=== PATIENT | male | born 1960 | race Caucasian/White ===

== ENCOUNTER 2017-02-19 11:54 | Emergency (ER) | payer BC, OTHER ==
[2017-02-19 11:57] VITALS: BMI 23.0
[2017-02-19 11:58] VITALS: BP 163/104; PULSE 96; RESP 20; TEMP 98.3; O2SAT 99
[2017-02-19 13:23] LABS: BASO % 0.4 % (0.0-2.0); HEMOGLOBIN 15.4 g/dL (12.0-18.0); LYMPH # 0.8 K/uL (1.0-4.3); LYMPH % 15.3 % (20.0-40.0); MEAN CELL VOLUME 96.3 fl (80.0-94.0); MEAN CORPUSCULAR HEMOGLOBIN 32.3 pg (27.0-31.0); MEAN CORPUSCULAR HGB CONC 33.6 g/dL (33.0-37.0); MEAN PLATELET VOLUME 8.1 fl (7.2-11.7); MONO # 0.3 K/uL (0.0-0.8); NEUT # 4.3 K/uL (1.8-7.0); NEUT % 79.3 % (50.0-75.0); NRBC % 0.1 % (0.0-0.0); RBC 4.77 Mil/uL (4.40-5.90); RED CELL DISTRIBUTION WIDTH 12.2 % (11.5-14.5); WHITE BLOOD COUNT 5.4 K/uL (4.8-10.8)
[2017-02-19] MEDS: Sodium Chloride 0.9% 1,000 ML IV SCH (13:28)
[2017-02-19 13:31] LABS: BLOOD UREA NITROGEN 12 mg/dl (9-20); CALCIUM 9.4 mg/dL (8.4-10.2); GFR AFRICAN-AMERICAN > 60; GFR NON-AFRICAN AMERICAN > 60
--- NOTE | 2017-02-19 13:36 | ED PDOC ---
HPI: Chest Pain Time Seen by Provider: 02/19/17 12:12 Chief Complaint (Nursing): Chest Pain Chief Complaint (Provider): Chest Pain History Per: Patient History/Exam Limitations: no limitations Onset/Duration Of Symptoms: Days (x 2) Current Symptoms Are (Timing): Still Present Additional Complaint(s): Shashank is a 56 year old male who presents to the emergency department via EMS with sharp substernal, intermittent, non-radiant chest pain associated with shortness of breath since arguing with boss yesterday. Patient states he had an eventful night and woke up this morning with the same chest pain. As per EMS, patient was originally in the police department to get a police report against his boss, but police officers noticed patient not looking well, so they called an ambulance. Patient denies pain. Patient lives by himself. PMD: Provider TBD Past Medical History Reviewed: Historical Data, Nursing Documentation, Vital Signs Vital Signs: Last Vital Signs Temp 98.3 F 02/19/17 11:57 Pulse 96 H 02/19/17 11:57 Resp 20 02/19/17 11:57 BP 163/104 H 02/19/17 11:57 Pulse Ox 99 02/19/17 13:43 - Medical History PMH: No Chronic Diseases - Surgical History Surgical History: No Surg Hx - Family History Family History: States: No Known Family Hx - Social History Current smoker - smoking cessation education provided: No Ex-Smoker (has not smoked in the last 12 months): Yes (not active for 7 years) Alcohol: Other (drinks 2 drinks a week) - Home Medications Home Medications: Ambulatory Orders Medication Instructions Recorded Methocarbamol [Robaxin-750] 2 tab PO QID PRN #16 tablet 09/15/15 Naproxen [Anaprox DS] 1 tab PO Q12 PRN #20 tab 09/15/15 - Allergies Allergies/Adverse Reactions: Allergies Allergy/AdvReac Type Severity Reaction Status Date / Time No Known Allergies Allergy Verified 09/15/15 10:44 Review of Systems ROS Statement: Except As Marked, All Systems Reviewed And Found Negative Cardiovascular: Positive for: Chest Pain (sharp substernal, intermittent, non- radiant chest pain) Physical Exam - Reviewed Nursing Documentation Reviewed: Yes Vital Signs Reviewed: Yes - Physical Exam Appears: Positive for: No Acute Distress Head Exam: Positive for: ATRAUMATIC, NORMOCEPHALIC Skin: Negative for: Rash Neck: Positive for: Supple Cardiovascular/Chest: Positive for: Regular Rate, Rhythm (Normal S1 and S2) Respiratory: Positive for: Normal Breath Sounds. Negative for: Respiratory Distress Neurologic/Psych: Positive for: Alert, Oriented - Laboratory Results Result Diagrams: 02/19/17 13:10 02/19/17 13:10 - ECG O2 Sat by Pulse Oximetry: 99 (RA) Pulse Ox Interpretation: Normal Medical Decision Making Medical Decision Making: Time: 12:47 Impression: Acute substernal Chest Pain Atypical Plan: - EKG - BMP - Troponin I - CBC - Chest X-Ray - Sodium Chloride 0.9% 1,000 ml IV 250 mls/hr - Re-evaluation Time: 12:44 Urine Dip and Leuks are (-). Scribe Attestation: Documented by Chris Bartholomew, acting as a scribe for Marilee Rosario MD Provider Scribe Attestation: All medical record entries made by the Scribe were at my direction and personally dictated by me. I have reviewed the chart and agree that the record accurately reflects my personal performance of the history, physical exam, medical decision making, and the department course for this patient. I have also personally directed, reviewed, and agree with the discharge instructions and disposition. 2.45p - patient is without pain or discomfort since arrival. He still points to the SS area when he does have pain Disposition - Clinical Impression Clinical Impression: Atypical chest pain - Patient ED Disposition Is Patient to be Admitted: No Doctor Will See Patient In The: Office Counseled Patient/Family Regarding: Diagnosis, Need For Followup - Disposition Disposition: Routine/Home Disposition Time: 14:30 Condition: STABLE Instructions: Chest Wall Pain (ED) Forms: [employer] (Singaporean) Print Language: JAPANESE - POA Present On Arrival: None
--- NOTE | 2017-02-19 13:49 | RAD ---
HISTORY: COMPARISON: 06/16/2015 TECHNIQUE: Chest PA and lateral FINDINGS: LINES AND TUBES: None. LUNG AND PLEURA: The lungs are hyperinflated and there is peribronchial thickening with chronic changes in both lungs. No lobar pneumonia. HEART AND MEDIASTINUM: The heart is not enlarged. The hilar and mediastinal contours are within normal limits. SKELETAL STRUCTURES: The bony structures are within normal limits for the patient's age. VISUALIZED UPPER ABDOMEN: Normal. OTHER FINDINGS: None. IMPRESSION: No active pulmonary disease. COPD.
--- NOTE | 2017-02-20 08:34 | CARD ---
APPROVED REPORT EKG Measurement Heart [id number] <Conclusion> Normal sinus rhythm Possible Left atrial enlargement Borderline ECG
== END 2017-02-19 15:19 | disposition home or self-care (01) ==
LOC: H.ER 11:54
DX: R07.89 Other chest pain (principal)
CPT/HCPCS: 71046; 80048; 84484; 85025; 93005; 99282; J7040

== ENCOUNTER 2017-11-20 16:04 | Emergency (ER) | payer BC ==
[2017-11-20 16:04] VITALS: BMI 23.0
[2017-11-20 16:36] VITALS: BP 127/84; PULSE 65; RESP 16; TEMP 98.6; O2SAT 98
--- NOTE | 2017-11-20 17:59 | ED PDOC ---
Lower Extremity Pain/Injury Time Seen by Provider: 11/20/17 16:36 Chief Complaint (Nursing): Lower Extremity Problem/Injury Chief Complaint (Provider): knee pain, left History Per: Patient History/Exam Limitations: no limitations Onset/Duration Of Symptoms: Days (few months), Worse Since (1x week, worse this morning) Current Symptoms Are (Timing): Still Present Additional Complaint(s): 57 year old male with no pertinent past medical history presents to the ED with complaints of left knee pain that started a few months ago. Patient states that he twisted his left knee at work a few month ago. 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 Patient denies taking any medications for pain. Patient reports that he used a knee brace with mild relief. PMD: None Provided. - Knee Description Of Injury: Twisted (left) Past Medical History Reviewed: Historical Data, Nursing Documentation, Vital Signs Vital Signs: Last Vital Signs Temp 98.6 F 11/20/17 16:32 Pulse 65 11/20/17 16:32 Resp 16 11/20/17 16:32 BP 127/84 11/20/17 16:32 Pulse Ox 98 11/20/17 16:32 - Medical History PMH: No Chronic Diseases - Family History Family History: States: No Known Family Hx - Social History Alcohol: Other (yes) - Home Medications Home Medications: Ambulatory Orders Medication Instructions Recorded Methocarbamol [Robaxin-750] 2 tab PO QID PRN #16 tablet 09/15/15 Naproxen [Anaprox DS] 1 tab PO Q12 PRN #20 tab 09/15/15 Naproxen [Naprosyn] 500 mg PO BID PRN #20 tablet 11/20/17 - Allergies Allergies/Adverse Reactions: Allergies Allergy/AdvReac Type Severity Reaction Status Date / Time No Known Allergies Allergy Verified 11/20/17 16:32 Review of Systems ROS Statement: Except As Marked, All Systems Reviewed And Found Negative Musculoskeletal: Positive for: Other (left knee pain) Physical Exam - Reviewed Nursing Documentation Reviewed: Yes Vital Signs Reviewed: Yes - Physical Exam Appears: Positive for: Well, Non-toxic, No Acute Distress Head Exam: Positive for: ATRAUMATIC, NORMOCEPHALIC Extremity: Positive for: Normal ROM. Negative for: Deformity (bony deformity), Swelling Neurologic/Psych: Positive for: Alert, Oriented (3x) - ECG O2 Sat by Pulse Oximetry: 98 (RA) Pulse Ox Interpretation: Normal - Radiology X-Ray: Interpreted by Me, Viewed By Me X-Ray Interpretation: Other (no acute fracture or dislocation) Medical Decision Making Medical Decision Makin:36 Initial impression: 57 year old male with left knee pain Initial plan: * Xray knee left 3 views * reevaluation 17:29 XRay knee left read and interpreted by me No acute fractures or dislocation 17:58 Upon provider reevaluation patient is feeling better, is medically stable, and requires no further treatment in the ED at this time. Patient will be discharged home with Rx for naproxen for pain. Counseling was provided and all questions were answered regarding diagnosis and need for follow up with Matt Barragan MD. There is agreement to discharge plan. Return if symptoms persist or worsen. Scribe Attestation: Documented by Justine Heath, acting as a scribe for Hwaa Christina PA-C. Provider Scribe Attestation: All medical record entries made by the Scribe were at my direction and personally dictated by me. I have reviewed the chart and agree that the record accurately reflects my personal performance of the history, physical exam, medical decision making, and the department course for this patient. I have also personally directed, reviewed, and agree with the discharge instructions and disposition Disposition - Clinical Impression Clinical Impression: Knee pain - Patient ED Disposition Is Patient to be Admitted: No Counseled Patient/Family Regarding: Diagnosis, Need For Followup, Rx Given - Disposition Referrals: Matt Barragan MD [Staff Provider] - Disposition: Routine/Home Disposition Time: 17:58 Condition: GOOD Prescriptions: Naproxen [Naprosyn] 500 mg PO BID PRN #20 tablet PRN Reason: Pain Instructions: Knee Pain Forms: [facility] (Ind[place]ian), [facility] ED School/Work Excuse
--- NOTE | 2017-11-21 09:56 | RAD ---
Date of service: 11/20/2017 PROCEDURE: Left Knee Radiographs. HISTORY: Pain. COMPARISON: None. FINDINGS: BONES: No acute fracture or destructive bony lesion identified. JOINTS: No dislocation or subluxation apparent. Medial and patellofemoral compartment joint space narrowing and associated cortical sclerosis indicates mild to moderate degenerative joint disease. JOINT EFFUSION: Trace suprapatellar bursa effusion. OTHER FINDINGS: None. IMPRESSION: No acute fracture, subluxation or dislocation. [id number] degenerative joint disease.
== END 2017-11-20 18:06 | disposition home or self-care (01) ==
LOC: H.ER 16:04
DX: M25.562 Pain in left knee (principal)

== ENCOUNTER 2018-04-12 22:27 | Emergency (ER) | payer BC ==
[2018-04-12 22:28] VITALS: BMI 23.0
[2018-04-12 22:47] VITALS: RESP 18; TEMP 98.8
[2018-04-12] MEDS ORDERED: Sodium Chloride 0.9% 1,000 ML IV STA (23:53)
--- NOTE | 2018-04-12 23:56 | ED PDOC ---
HPI: Influenza Time Seen by Provider: 04/12/18 22:51 Chief Complaint: Cough, Cold, Congestion Chief Complaint (Provider): Cough, Cold, Congestion History Per: Patient Exam Limitations: no limitations Symptoms include: cough, vomiting, difficulty breathing. denies: chest pain Additional complaint(s):: 57 y/o male with history of hypertension, high cholesterol, and asthmas presents to the ED complaining of vomiting with associated shortness of breath and cough for x1 week. Patient has history of hypertension but refuses to take any medication for it in the past. Patient also complaining of a whistling in his chest but denies chest pain. Patient states he has had no appetite today. He is very argumentative and difficult, complaining about everything includding that no one gave him hot drink. also states that he goes to the clinic and they have told him he needs to take anti hypertensives. . Patient also feels anxious. Past Medical History Reviewed: Historical Data, Nursing Documentation, Vital Signs Vital Signs: Last Vital Signs Temp 98.8 F 04/12/18 22:37 Pulse 85 04/12/18 23:31 Resp 18 04/12/18 23:31 BP 156/104 H 04/12/18 23:31 Pulse Ox 99 04/12/18 23:31 - Medical History PMH: Asthma, HTN, Hypercholesterolemia - Surgical History Surgical History: No Surg Hx - Family History Family History: States: Unknown Family Hx - Social History Current smoker - smoking cessation education provided: No Ex-Smoker (has not smoked in the last 12 months): Yes (7 years) Alcohol: Occasional (Twice per week; last drink yesterday) - Immunization History Hx Tetanus Toxoid Vaccination: No Hx Influenza Vaccination: No Hx Pneumococcal Vaccination: No - Home Medications Home Medications: Ambulatory Orders Medication Instructions Recorded Methocarbamol [Robaxin-750] 2 tab PO QID PRN #16 tablet 09/15/15 Naproxen [Anaprox DS] 1 tab PO Q12 PRN #20 tab 09/15/15 Naproxen [Naprosyn] 500 mg PO BID PRN #20 tablet 11/20/17 - Allergies Allergies/Adverse Reactions: Allergies Allergy/AdvReac Type Severity Reaction Status Date / Time No Known Allergies Allergy Verified 11/20/17 16:32 Review of Systems ROS Statement: Except As Marked, All Systems Reviewed And Found Negative Cardiovascular: Negative for: Chest Pain Respiratory: Positive for: Cough, Shortness of Breath Gastrointestinal: Positive for: Vomiting Psych: Positive for: Anxiety Physical Exam - Reviewed Nursing Documentation Reviewed: Yes Vital Signs Reviewed: Yes - Physical Exam Appears: Positive for: Well, Non-toxic, No Acute Distress Head Exam: Positive for: ATRAUMATIC, NORMAL INSPECTION, NORMOCEPHALIC Skin: Positive for: Normal Color, Warm, DRY Eye Exam: Positive for: EOMI, Normal appearance, PERRL ENT: Positive for: Normal ENT Inspection Neck: Positive for: Normal, Painless ROM Cardiovascular/Chest: Positive for: Regular Rate, Rhythm. Negative for: Murmur Respiratory: Positive for: Normal Breath Sounds. Negative for: Respiratory Distress Gastrointestinal/Abdominal: Positive for: Normal Exam, Soft. Negative for: Tenderness Back: Positive for: Normal Inspection Extremity: Positive for: Normal ROM. Negative for: Pedal Edema, Deformity Neurologic/Psych: Positive for: Alert, Oriented. Negative for: Motor/Sensory Deficits Medical Decision Making Medical Decision Making: Time: 23:53 Initial Impression: vomiting and shortness of breath Initial Plan: * EKG * Labs * IV Fluids 02:10 On reevaluation patient was sleeping under cover in the bed. I Offered patient nebulizer treatment he refused it. Offered crisis evaluation, patient denied that as well. Explained that labs demonstrated his potassium was low and repleted it. EKG was normal. Reviewed all results with patient. Advised patient to follow up with his PMD for elevated blood pressure. Patient was not happy with these results and got angry at provider and stormed off. Scribe Attestation: Documented by Hcetor Underwood acting as a scribe for Benton Tripp MD. Provider Scribe Attestation: All medical record entries made by the Scribe were at my direction and personally dictated by me. I have reviewed the chart and agree that the record accurately reflects my personal performance of the history, physical exam, medical decision making, and the department course for this patient. I have also personally directed, reviewed, and agree with the discharge instructions and disposition. - Laboratory Results Result Diagrams: 04/13/18 00:27 04/13/18 00:27 - ECG O2 Sat by Pulse Oximetry: 99 Disposition - Clinical Impression Clinical Impression: Hypertension - Patient ED Disposition Is Patient to be Admitted: No Counseled Patient/Family Regarding: Studies Performed, Diagnosis, Need For Followup - Disposition Disposition: Routine/Home Disposition Time: 02:12 Condition: IMPROVED Additional Instructions: follow up with your primary doctor in 1-2 days return to the ED with any worsening or concerning symptoms Instructions: High Blood Pressure (DC) Forms: [employer] (Lithuanian)
[2018-04-13 00:33] LABS: BASO % 0.5 % (0.0-2.0); EOS # 0.1 K/uL (0.0-0.7); EOS % 1.3 % (0.0-4.0); HEMOGLOBIN 15.1 g/dL (12.0-18.0); LYMPH # 2.6 K/uL (1.0-4.3); MEAN CELL VOLUME 96.6 fl (80.0-94.0); MEAN CORPUSCULAR HEMOGLOBIN 31.9 pg (27.0-31.0); MEAN PLATELET VOLUME 8.4 fl (7.2-11.7); MONO # 0.4 K/uL (0.0-0.8); NEUT # 1.8 K/uL (1.8-7.0); NEUT % 36.2 % (50.0-75.0); NRBC % 0.1 % (0.0-0.0); RBC 4.73 Mil/uL (4.40-5.90); RED CELL DISTRIBUTION WIDTH 12.1 % (11.5-14.5); WHITE BLOOD COUNT 4.9 K/uL (4.8-10.8)
[2018-04-13 00:38] LABS: ALB/GLOB RATIO 1.4 (1.0-2.1); ALBUMIN 4.4 g/dL (3.5-5.0); ALT/SGPT 36 U/L (21-72); AST/SGOT 18 U/L (17-59); BLOOD UREA NITROGEN 16 mg/dl (9-20); CALCIUM 9.6 mg/dL (8.4-10.2); GFR NON-AFRICAN AMERICAN > 60
[2018-04-13] MEDS ORDERED: Potassium Chloride 20 mEq ER Tab PO ONE ×2 (01:12→01:30)
[2018-04-13 02:39] VITALS: BP 136/86; PULSE 82
[2018-04-13 03:14] VITALS: O2SAT 99
--- NOTE | 2018-04-13 07:49 | CARD ---
APPROVED REPORT Date of service: 04/12/2018 EKG Measurement Heart [id number] <Conclusion> Normal sinus rhythm Normal ECG
--- NOTE | 2018-04-13 10:10 | RAD ---
Date of service: 04/12/2018 HISTORY: cough COMPARISON: Chest radiographs 02/19/2017. TECHNIQUE: Chest PA and lateral FINDINGS: LUNGS: No active pulmonary disease. PLEURA: No significant pleural effusion identified. No pneumothorax apparent. CARDIOVASCULAR: No aortic atherosclerotic calcification present. Normal cardiac size. No pulmonary vascular congestion. OSSEOUS STRUCTURES: No significant abnormalities. VISUALIZED UPPER ABDOMEN: Normal. OTHER FINDINGS: None. IMPRESSION: No interval acute cardiopulmonary disease appreciated.
== END 2018-04-13 02:37 | disposition home or self-care (01) ==
LOC: H.ER 22:27
DX: I10 Essential (primary) hypertension (principal); J45.909 Unspecified asthma, uncomplicated; Z87.891 Personal history of nicotine dependence; E78.00 Pure hypercholesterolemia, unspecified
CPT/HCPCS: 71046; 80053; 84484; 85025; 93005; 96360; 99283; J7030